=== PATIENT | female | born 1955 | race Caucasian/White ===

== ENCOUNTER 2022-01-12 11:16 | Inpatient (IN) | payer OTHER, SELFPAY ==
--- NOTE | 2022-01-12 13:00 | ED.PSYCH ---
HPI - Psych General Chief Complaint: Psychiatric Symptoms Stated Complaint: crisis Time Seen by Provider: 01/12/22 12:54 Source: patient Mode of arrival: ambulatory Limitations: no limitations History of Present Illness MD complaint: anxiety and other (insomnia off medications) Onset (ago): month(s) (?2) Duration: getting worse History of same: Yes (admitted to [facility] 2 months ago after leaving suicide note for ) Relieving factors: none Exacerbating factors: other (not taking her medications) Context: not taking psychiatric medications Associated psychiatric symptoms: suicidal ideation (making references about leaving her a note) Associated symptoms: insomnia Treatments prior to arrival: none If self harm: admits thoughts of self harm Related Data Allergies Allergy/AdvReac Type Severity Reaction Status Date / Time Unable to Assess Allergy Verified 01/12/22 13:09 Review of Systems Review of Systems: Constitutional : No Fever, No Chills, pos weight loss, pos anorexia ENT/Mouth : No Ear Pain, No Nasal Congestion, No sore throat Eyes: No Eye Pain, No Swelling, No Redness Cardiovascular : No Chest Pain, No SOB Respiratory : No Cough, No Sputum, No Dyspnea Gastrointestinal : No Nausea, No Vomiting, No Diarrhea, No Hematochezia, No Melena Genitourinary : No Dysuria, No Urinary Frequency, No Hematuria Musculoskeletal : No Myalgias Skin : No Skin Lesions, No rash Neuro : No Weakness, No Numbness, No Paresthesias, No Dizziness, No Headache Psych : positive Anxiety, positive Depression, positive SI no HI Heme/Lymph: No Lymphadenopathy Endocrine : No Polyuria, No Polydipsia All other systems reviewed and are negative PMFSH Past Medical History Medical History Anxiety Psychosis Social History Social History (Updated 01/12/22 @ 14:06 by Marie Velazquez DO) Patient Tobacco Use Status: Never used Tobacco Use of substances other than those prescribed or required for medical reasons: No Advance Directives: No Advance Directives Information Provided: No Patient : No Physical Exam Vital Signs: Vital Signs: Last Vital Signs Temp 97.9 F 01/12/22 13:40 Pulse 89 01/12/22 13:40 Resp 18 01/12/22 13:40 BP 172/96 H 01/12/22 13:40 Pulse Ox 100 01/12/22 13:40 BMI result Body Mass Index 21.1 Appearance: Alert. Oriented X3. anxious, very scared appearing mild acute distress. Eyes: Pupils equal, round and reactive to light. ENT: Pharynx normal. Neck: Normal inspection. Neck supple. CVS: Normal heart rate and rhythm. Pulses normal. Respiratory: No respiratory distress. Breath sounds normal. Abdomen: Soft and non-tender. Skin: Skin warm and dry. Normal skin color. Normal skin turgor. Extremities: No lower extremity edema. No calf ttp Neuro: Oriented X 3. No motor deficit. No sensory deficit. CN 2-12 intact Course Course Course Narrative: Physician observation started at 256pm. Patient placed in physician observation because the patient needed more time for CARE team to assess the need for inpatient psychiatry. At the time observation was started the patient's vitals were stable, patient is alert and oriented but anxious, Neuro: nonfocal, CV RRR, Lungs clear MDM - Psych MDM Narrative Medical decision making narrative: 66 yo female with hx of psychosis and anxiety reports she was at [facility] recently for psychosis and she was scared to take medications so for the last couple of months she took herself off olanzapine and did not tell her therapist or psychiatrist she is very anxious, not sleeping, worried all the time. And left her a goodbye note - she attempted SI prior to her admit at [facility] [place] Will need labs, UA, CARE team consult, PO ativan for anxiety Lab Data Result diagrams: 01/12/22 14:14 01/12/22 14:14 Labs: Lab Results 01/12/22 01/12/22 01/12/22 Range/Units 12:46 14:13 14:13 WBC (4.8-10.8) X10*3/uL RBC (4.20-5.50) X10*6/uL Hgb (12.0-16.0) g/dl Hct (37.0-47.0) % MCV (80.0-98.0) fL MCH (27.0-33.0) pg MCHC (31.0-35.0) g/dl RDW (11.0-16.0) % Plt Count (160-400) X10*3/uL MPV (9.4-12.3) fL Immature Gran % (Auto) (0.0-0.4) % Neut % (Auto) (45-73) % Lymph % (Auto) (20-40) % [place] % (Auto) (2-11) % Eos % (Auto) (0-4) % Baso % (Auto) (0-2) % Lymph # (Auto) (1.2-4.9) X10*3/uL [place] # (Auto) (0.1-1.2) X10*3/uL Eos # (Auto) (0.0-0.4) X10*3/uL Baso # (Auto) (0.0-0.2) X10*3/uL Abs Immat Gran (auto) (0.00-0.03) X10*3/uL Absolute Neuts (auto) (2.0-8.3) x10*3/uL Absolute Nucleated RBC (0.0-0.012) X10*3/uL Nucleated RBC % (auto) (0.0-0.2) /100WBC Sodium (135-145) mmol/L Potassium (3.3-5.1) mmol/L Chloride (96-108) mmol/L Carbon Dioxide (22-29) mmol/L Anion Gap (12-20) BUN (9-16) mg/dL Creatinine (0.5-1.4) mg/dL Estim Creat Clear Calc Estimated GFR Random Glucose (60-115) mg/dL Calcium (8.4-10.2) mg/dL Magnesium (1.6-2.6) mg/dL Total Bilirubin (0.0-1.0) mg/dL Direct Bilirubin (0.0-0.5) mg/dL AST (5-31) U/L ALT (0-31) U/L Alkaline Phosphatase (39-117) U/L Total Protein (6.5-8.0) g/dL Albumin (3.5-5.0) g/dL Lipase (8-78) U/L TSH (0.32-4.0) uIU/mL Urine Color STRAW Urine Appearance CLEAR Urine pH 6.5 (5.0-8.0) Ur Specific [place] <= 1.005 (1.005-1.025) Urine Protein NEG (NEG-TRACE) MG/DL Urine Glucose (UA) NEG (NEG) MG/DL Urine Ketones NEG (NEG) MG/DL Urine Blood NEG (NEG) Urine Nitrite NEG (NEG) Ur Leukocyte Esterase NEG (NEG) Urine Opiates Screen Not Detected (Not Detect) Urine Fentanyl Screen Not Detected (Not Detect) Ur Barbiturates Screen Not Detected (Not Detect) Ur Phencyclidine Scrn Not Detected (Not Detect) Ur Amphetamines Screen Not Detected (Not Detect) U Benzodiazepines Scrn Not Detected (Not Detect) Urine Cocaine Screen Not Detected (Not Detect) U Marijuana (THC) Screen Not Detected (Not Detect) COVID-19 (DEL) Negative (Negative) COVID-19 Clin Com See Note 01/12/22 01/12/22 01/12/22 Range/Units 14:14 14:14 14:14 WBC 6.9 (4.8-10.8) X10*3/uL RBC 4.66 (4.20-5.50) X10*6/uL Hgb 14.6 (12.0-16.0) g/dl Hct 43.1 (37.0-47.0) % MCV 92.5 (80.0-98.0) fL MCH 31.3 (27.0-33.0) pg MCHC 33.9 (31.0-35.0) g/dl RDW 12.0 (11.0-16.0) % Plt Count 291 (160-400) X10*3/uL MPV 8.7 L (9.4-12.3) fL Immature Gran % (Auto) 0.4 (0.0-0.4) % Neut % (Auto) 71.5 (45-73) % Lymph % (Auto) 19.9 L (20-40) % [place] % (Auto) 7.1 (2-11) % Eos % (Auto) 0.7 (0-4) % Baso % (Auto) 0.4 (0-2) % Lymph # (Auto) 1.4 (1.2-4.9) X10*3/uL [place] # (Auto) 0.5 (0.1-1.2) X10*3/uL Eos # (Auto) 0.1 (0.0-0.4) X10*3/uL Baso # (Auto) 0.0 (0.0-0.2) X10*3/uL Abs Immat Gran (auto) 0.03 (0.00-0.03) X10*3/uL Absolute Neuts (auto) 4.9 (2.0-8.3) x10*3/uL Absolute Nucleated RBC 0.000 (0.0-0.012) X10*3/uL Nucleated RBC % (auto) 0.0 (0.0-0.2) /100WBC Sodium 137 (135-145) mmol/L Potassium 4.3 (3.3-5.1) mmol/L Chloride 102 (96-108) mmol/L Carbon Dioxide 28 (22-29) mmol/L Anion Gap 11 L (12-20) BUN 16 (9-16) mg/dL Creatinine 0.95 (0.5-1.4) mg/dL Estim Creat Clear Calc 61.4 Estimated GFR 59 Random Glucose 135 H (60-115) mg/dL Calcium 9.9 (8.4-10.2) mg/dL Magnesium 2.2 (1.6-2.6) mg/dL Total Bilirubin 0.5 (0.0-1.0) mg/dL Direct Bilirubin < 0.2 (0.0-0.5) mg/dL AST 14 (5-31) U/L ALT 14 (0-31) U/L Alkaline Phosphatase 76 (39-117) U/L Total Protein 6.9 (6.5-8.0) g/dL Albumin 4.2 (3.5-5.0) g/dL Lipase 43 (8-78) U/L TSH 0.82 (0.32-4.0) uIU/mL Urine Color Urine Appearance Urine pH (5.0-8.0) Ur Specific [place] (1.005-1.025) Urine Protein (NEG-TRACE) MG/DL Urine Glucose (UA) (NEG) MG/DL Urine Ketones (NEG) MG/DL Urine Blood (NEG) Urine Nitrite (NEG) Ur Leukocyte Esterase (NEG) Urine Opiates Screen (Not Detect) Urine Fentanyl Screen (Not Detect) Ur Barbiturates Screen (Not Detect) Ur Phencyclidine Scrn (Not Detect) Ur Amphetamines Screen (Not Detect) U Benzodiazepines Scrn (Not Detect) Urine Cocaine Screen (Not Detect) U Marijuana (THC) Screen (Not Detect) COVID-19 (DEL) (Negative) COVID-19 Clin Com ECG Data Attestation: I personally reviewed and interpreted this ECG as follows: ECG interpretation date: 01/12/22 ECG interpretation time: 15:18 Interpretation: Rate: 95 Rhythm: NSR [place]: normal Normal P waves. Normal GIANFRANCO. Normal QRS complex. ST T wave : normal no AMY qTC: normal prior studies: no acute ischemia The study has been interpreted contemporaneously by me. . Discharge Plan Discharge Clinical Impression: Acute anxiety Patient Disposition: Still a Patient
--- NOTE | 2022-01-12 13:10 | ECG_ITS ---
Test Reason : med clearance Blood Pressure : / mmHG Vent. Rate : 095 BPM Atrial Rate : 095 BPM P-R Int : 150 ms QRS Dur : 094 ms QT Int : 334 ms P-R-T Axes : 062 066 068 degrees QTc Int : 419 ms Normal sinus rhythm Normal ECG No previous ECGs available Referred By: Marie Velazquez Electronically Signed By:Johan Fitzpatrick
[2022-01-12 13:14] LABS: COVID-19 Test Negative (Negative)
[2022-01-12 13:40] VITALS: BP 172/96; PULSE 89; RESP 18; TEMP 36.6; O2SAT 100; BMI 21.1
[2022-01-12] MEDS: LORazepam 0.5 MG TABLET PO (14:16)
[2022-01-12 14:19] LABS: MANUAL DIFF FLAG NO
[2022-01-12 14:20] LABS: Appearance Urine CLEAR; Color Urine STRAW; Glucose Urine UA NEG (NEG); Leukocyte Esterase Urine NEG (NEG); Nitrite Urine NEG (NEG); PH 6.5 (5.0-8.0); Specific Gravity - Urine <= 1.005 (1.005-1.025); Urine Blood NEG (NEG); Urine Ketones NEG (NEG); Urine Protein NEG (NEG-TRACE)
[2022-01-12 14:21] LABS: Basophils Percent Auto 0.4 % (0-2); Eosinophils Absolute Auto 0.1 X10*3/uL (0.0-0.4); Eosinophils Percent Auto 0.7 % (0-4); Hematocrit 43.1 % (37.0-47.0); Hemoglobin 14.6 g/dl (12.0-16.0); Imm Gran Abs Auto 0.03 X10*3/uL (0.00-0.03); Imm Gran Pct Auto 0.4 % (0.0-0.4); Lymphocytes Absolute Auto 1.4 X10*3/uL (1.2-4.9); Lymphocytes Percent Auto 19.9 % (20-40); Mean Corpuscular HGB Conc 33.9 g/dl (31.0-35.0); Mean Corpuscular Hemoglobin 31.3 pg (27.0-33.0); Mean Corpuscular Volume 92.5 fL (80.0-98.0); Mean Platelet Volume 8.7 fL (9.4-12.3); Monocytes Absolute Auto 0.5 X10*3/uL (0.1-1.2); Monocytes Percent Auto 7.1 % (2-11); Neutrophils Absolute Auto 4.9 x10*3/uL (2.0-8.3); Neutrophils Percent Auto 71.5 % (45-73); Platelet Count 291 X10*3/uL (160-400); Red Blood Count 4.66 X10*6/uL (4.20-5.50); White Blood Count 6.9 X10*3/uL (4.8-10.8)
[2022-01-12 14:36] LABS: Amphetamine Screen Urine Not Detected (Not Detect); Barbiturates, Urine Not Detected (Not Detect); Benzodiazepines Screen Urine Not Detected (Not Detect); Cannabinoid Screen Urine Not Detected (Not Detect); Cocaine Screen Urine Not Detected (Not Detect); Fentanyl, urine Not Detected (Not Detect); Opiate Screen Urine Not Detected (Not Detect); Phencyclidine Screen Urine Not Detected (Not Detect)
[2022-01-12 14:37] LABS: Alanine Aminotransferase 14 U/L (0-31); Albumin Level 4.2 g/dL (3.5-5.0); Alkaline Phosphatase 76 U/L (39-117); Anion Gap 11 (12-20); Aspartate Amino Transferase 14 U/L (5-31); Bilirubin Direct < 0.2 mg/dL (0.0-0.5); Bilirubin Total 0.5 mg/dL (0.0-1.0); Blood Urea Nitrogen 16 mg/dL (9-16); Calcium 9.9 mg/dL (8.4-10.2); Carbon Dioxide 28 mmol/L (22-29); Chloride 102 mmol/L (96-108); Creatinine Clr Calc Pharmacy 61.4; Estimated Glomerular Filt Rate 59; Glucose Random 135 mg/dL (60-115); Lipase 43 U/L (8-78); Magnesium 2.2 mg/dL (1.6-2.6); Potassium 4.3 mmol/L (3.3-5.1); Sodium 137 mmol/L (135-145); Total Protein 6.9 g/dL (6.5-8.0)
[2022-01-12 14:53] LABS: TSH reflex Free T4 0.82 uIU/mL (0.32-4.0)
[2022-01-12 17:05] VITALS: BP 140/90; PULSE 96; RESP 20; TEMP 37; O2SAT 96
[2022-01-12] MEDS: Ibuprofen 400 MG TABLET PO (17:10)
[2022-01-12] MEDS: Docusate Sodium 100 MG CAPSULE PO (19:51)
[2022-01-12 21:50] VITALS: BP 142/90; PULSE 81; RESP 18; TEMP 36.2; O2SAT 98
[2022-01-12] MEDS: traZODone HCL 50 MG TABLET PO (23:17)
[2022-01-13] MEDS: Ibuprofen 600 MG TABLET PO (00:35)
[2022-01-13] MEDS: traZODone HCL 50 MG TABLET PO (00:36)
[2022-01-13 02:04] VITALS: BMI 19.5
--- NOTE | 2022-01-13 02:28 | PC.ADMIT ---
Addendum entered by Delphine Zamorano RN 01/13/22 03:11: Med Hx also includes stress/urge incontinence. Original Note: Pt is a 66 year old female presented to from [facility] ED at 2145 this evening on a CV. Pt is Covid -, Utox -. VS were taken and WNL with exception of BP of 142/90. Pt had been hospitalized in Aug/Sep d/t her anxiety at [facility]. She was stable for a while but went off her medications because she was afraid it would give her a stroke. Pt stated that while at [facility], she had mentioned that her son did well on zyprexa and then they put her on the same medication. She stated I do not need to be on an anti-psychotic . Pt also stated that the whole idea of her being on zyprexa was random . Pt states that while she was walking by the river she had some thoughts to jump into the river but decided not to do it. States that she has been finding it very difficult to attend to her ADL's. States that she has no med hx with exception of constipation and this issue going on with the toes on her right foot causing her extreme discomfort and anxiety. She believe this issue started after breaking her right foot last year. Pt had stopped taking the meds prescribed to her since her [facility] stay as she felt she could manage without it. She would like to be prescribed a medication to decrease/control her anxiety and something to help with her sleep. Pt currently denies any SI, HI, AVH. Provider orders are in, aware of admit. Pt has contracted for safety and is on 15 minute checks.
[2022-01-13] MEDS: LORazepam 0.5 MG TABLET PO (02:48)
--- NOTE | 2022-01-13 05:13 | PC.NURSE ---
Pt stated she rec'd the flu vaccine in [facility] back in Aug-2020.
[2022-01-13] MEDS: Milk of Magnesia 30 ML ORAL.SUSP PO (08:36)
[2022-01-13 08:55] VITALS: BP 127/83; PULSE 82; RESP 18; TEMP 36.2; O2SAT 98
[2022-01-13 08:58] VITALS: BMI 19.5
[2022-01-13 09:44] LABS: Magnesium 2.2 mg/dL (1.6-2.6)
[2022-01-13 09:59] LABS: Free T4 (Free Thyroxine) 1.04 ng/dL (0.71-1.85); Thyroid Stimulating Hormone 1.48 uIU/mL (0.32-4.0)
[2022-01-13 10:52] LABS: Vitamin B12 577 pg/mL (200-900)
[2022-01-13] MEDS: Acetaminophen 325 MG TABLET 650 MG PO (11:19)
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
[2022-01-13] MEDS: polyethylene glycoL 3350 17 GM POWD.PACK PO (16:27)
[2022-01-13] MEDS: clonazePAM 0.5 MG TABLET PO ×2 (16:27→21:35)
[2022-01-13] MEDS: risperiDONE 0.5 MG TABLET PO ×2 (16:27→21:35)
[2022-01-13 18:00] VITALS: BP 107/74; PULSE 86; RESP 18; TEMP 36.4; O2SAT 98
[2022-01-14 09:39] LABS: Estimated Average Glucose 105 mg/dL; Hemoglobin A1c % 5.3 %
[2022-01-14 09:45] LABS: Cholesterol 205 mg/dL; HDL Cholesterol 45 mg/dL; LDL Cholesterol Calculated 139 mg/dl; Triglycerides 106 mg/dL
[2022-01-14 09:56] VITALS: BP 122/66; PULSE 110; RESP 17; TEMP 36.8; O2SAT 99
[2022-01-14] MEDS: polyethylene glycoL 3350 17 GM POWD.PACK PO (09:56)
[2022-01-14] MEDS: risperiDONE 0.5 MG TABLET PO (09:57)
[2022-01-14] MEDS: clonazePAM 0.5 MG TABLET PO ×2 (09:57→21:04)
--- NOTE | 2022-01-14 15:06 | P.PNPSI_ITS ---
Subjective Subjective Date of Service: 01/14/22 Reason For Visit: Depression,SI Interim History: pt reports feeling happy she slept last night, not so anxious now. c/o feeling tired this morning, which may be due to klonopin and risperidone. agrees to consolidate risperidone at HS. also c/o severe constipation, agreeable to enema. denies any safety concerns, MRE SI 2 days ago. per staff, anx/dep 9/10 yesterday. eating OK but has poor appetite. poor sleep 2/2 pain. denies SI/HI /AVH. safe. new orders for klonopin, miralax, risperidone. Mental Status Exam Mental Status Exam Narrative: Appearance:thin casually groomed, fair hygiene Behavior: cooperative psychomotor: no PMA/PMR Speech: hyperverbal, nml rate, loudness. Thought process: wandering but logical Thought content: no delusions or paranoia expressed Mood: happy she slept, not so anxious. Affect: congruent SI: denies since 2 days ago HI:none VH/AH: denies Delusions: none expressed Insight/judgment:impaired x 2. Memory/cog: alert, oriented 3. not formally tested, may do MOCA once psychiatrically more stable. Diagnostics Vital Signs (24Hr): Vital Signs - 24 hr 01/13/22 18:00 01/14/22 09:56 Temperature 97.6 F 98.3 F Pulse Rate 86 110 H Respiratory Rate 18 17 Blood Pressure 107/74 122/66 Pulse Oximetry 98 99 BMI result Body Mass Index 19.5 Labs Results: 01/12/22 14:14 01/12/22 14:14 Labs: Laboratory Results - last 48 hr 01/13/22 01/13/22 01/14/22 08:51 08:51 09:10 Estimat Average Glucose Hemoglobin A1c % Magnesium 2.2 Triglycerides 106 Cholesterol 205 LDL Cholesterol, Calc 139 HDL Cholesterol 45 Vitamin B12 577 Folate 12.0 TSH 1.48 Free T4 1.04 01/14/22 09:10 Estimat Average Glucose 105 Hemoglobin A1c % 5.3 Magnesium Triglycerides Cholesterol LDL Cholesterol, Calc HDL Cholesterol Vitamin B12 Folate TSH Free T4 Medications Medications Current Medications Acetaminophen (Acetaminophen 325 Mg Tablet) 650 mg PO Q6H PRN PRN Reason: Headache/Pain Mild Scale (1-3) Last Admin: 01/13/22 11:19 Dose: 650 mg Documented by: Al Hydroxide/Mg Hydroxide (Magnesium Hydrox/Alum Hydrox 30 Ml Oral.Susp) 30 ml PO Q6H PRN PRN Reason: Heartburn/Nausea Clonazepam (Clonazepam 0.5 Mg Tablet) 0.5 mg PO BID [facility] Last Admin: 01/14/22 09:57 Dose: 0.5 mg Documented by: Hydroxyzine HCl (Hydroxyzine Hcl 25 Mg Tablet) 25 mg PO Q6H PRN PRN Reason: Anxiety Ibuprofen (Ibuprofen 600 Mg Tablet) 600 mg PO Q8H PRN PRN Reason: Pain, Mild (Pain Scale 1-3) Last Admin: 01/13/22 00:35 Dose: 600 mg Documented by: Magnesium Hydroxide (Milk Of Magnesia 30 Ml Oral.Susp) 30 ml PO DAILY PRN PRN Reason: Constipation Last Admin: 01/13/22 08:36 Dose: 30 ml Documented by: Polyethylene Glycol (Polyethylene Glycol 3350 17 Gm Powd.Pack) 17 gm PO DAILY [facility] Last Admin: 01/14/22 09:56 Dose: 17 gm Documented by: Risperidone (Risperidone 1 Mg Tablet) 1 mg PO BEDTIME [facility] Trazodone HCl (Trazodone Hcl 50 Mg Tablet) 50 mg PO BEDTIME PRN PRN Reason: Insomnia Last Admin: 01/13/22 00:36 Dose: 50 mg Documented by: Trolamine Salicylate/Aloe Vera (Trolamine Salicylate 10%/Aloe Cream 35.4 Gm) 1 appl TOPICAL QID PRN PRN Reason: left toes pain Allergies Allergies Allergy/AdvReac Type Severity Reaction Status Date / Time diphenhydramine Allergy Unknown Unknown Verified 01/13/22 03:25 [From Benadryl] Assessment & Plan Assessment & Plan (1) Psychosis: Status: Acute Code(s): F29 - Unspecified psychosis not due to a substance or known physiological con dition Plan Mrs. Ch is a 66 year-old woman w/ hx of persecutory/paranoid delusions for the past years. She was brought to [facility] [place] [facility] by as pt wrote [place] due to paranoid delusions. Her does report an underlying anxious bordering on paranoia traits for past 25 years but severity much worse in past year. R/o delusional disorder, psychosis related to neurocognitive d/o, MDD with psychosis. We discussed risks, benefits and alternative treatment options. PLAN 1. Admit on CV, 15 minutes checks for safety 2. Start clonazepam 0.5mg po BID 3. Start risperidone 0.5mg po BID- titrate as appropriate. consolidate to 1 mg at HS due to morning sedation 01/14. 4. Miralax for constipation- may consider KUB if continued reports of constipation without relief, unclear if some somatic delusions also present. enema orderd x1 01/14. 5. Obtain collateral information 6. Aftercare planning. I spent __25____ minutes with the patient and/or on the patient floor today, greater than?50% of which was spent counseling/coordinating care. Reason for contiued inpatient stay Substantial Risk for: inability to function and rapid decompensation
[2022-01-14 20:08] VITALS: BP 128/72; PULSE 76; RESP 17; TEMP 36.5; O2SAT 99
[2022-01-14] MEDS: risperiDONE 1 MG TABLET PO (21:04)
[2022-01-15 08:00] VITALS: BP 133/83; PULSE 84; RESP 16; TEMP 36.4; O2SAT 96
[2022-01-15] MEDS: polyethylene glycoL 3350 17 GM POWD.PACK PO (09:31)
--- NOTE | 2022-01-15 10:09 | P.PNPSI_ITS ---
Subjective Subjective Date of Service: 01/15/22 Reason For Visit: Depression,SI Interim History: pt reports feeling slightly less anxious. She reports sleeping better. She continues to present hesitant and overly worried about side effects of medications. She continues to ruminate on neighbors watching her, anxious about finances and how it impacted her ability to work. She denies SI/HI, hesitant about increasing risperidone but discuss need to increase to therapeutic dose. Review of Systems Review of Systems Constitutional : No Fever, No Chills, pos weight loss, pos anorexia ENT/Mouth : No Ear Pain, No Nasal Congestion, No sore throat Eyes: No Eye Pain, No Swelling, No Redness Cardiovascular : No Chest Pain, No SOB Respiratory : No Cough, No Sputum, No Dyspnea Gastrointestinal : No Nausea, No Vomiting, No Diarrhea, No Hematochezia, No Melena Genitourinary : No Dysuria, No Urinary Frequency, No Hematuria Musculoskeletal : No Myalgias Skin : No Skin Lesions, No rash Neuro : No Weakness, No Numbness, No Paresthesias, No Dizziness, No Headache Psych : positive Anxiety, positive Depression, positive SI no HI Heme/Lymph: No Lymphadenopathy Endocrine : No Polyuria, No Polydipsia All other systems reviewed and are negative Constitutional: Reports difficulty sleeping, Reports fatigue, Reports lethargy, Reports poor appetite and Reports weight loss Eyes: Reports no additional eye complaints Cardiovascular: Denies chest pain, Denies chest pain at rest, Denies lightheadedness, Denies dyspnea and Denies dyspnea on exertion Respiratory: Denies chest congestion, Denies cough, Denies dyspnea and Denies dyspnea on exertion Gastrointestinal: Reports constipation, Reports GI cramping, Denies dyspepsia, Denies heartburn, Denies nausea, Denies vomiting and Denies hematemesis Musculoskeletal: Reports numbness (bilat feet) Reports numbness (bilat feet) Endocrine: Reports fatigue Mental Status Exam Mental Status Exam Narrative: Appearance:thin casually groomed, fair hygiene Behavior: cooperative psychomotor: no PMA/PMR Speech: hyperverbal, nml rate, loudness. Thought process: wandering but logical Thought content: no delusions or paranoia expressed Mood: happy she slept, not so anxious. Affect: congruent SI: denies since 2 days ago HI:none VH/AH: denies Delusions: none expressed Insight/judgment:impaired x 2. Memory/cog: alert, oriented 3. not formally tested, may do MOCA once psychiatrically more stable. Diagnostics Vital Signs (24Hr): Vital Signs - 24 hr 01/16/22 19:40 01/17/22 08:17 Temperature 98.0 F 97.0 F Pulse Rate 68 78 Respiratory Rate 16 16 Blood Pressure 134/85 127/81 Pulse Oximetry 97 99 BMI result Body Mass Index 19.5 Labs Results: 01/12/22 14:14 01/12/22 14:14 Medications Medications Current Medications Acetaminophen (Acetaminophen 325 Mg Tablet) 650 mg PO Q6H PRN PRN Reason: Headache/Pain Mild Scale (1-3) Last Admin: 01/13/22 11:19 Dose: 650 mg Documented by: Al Hydroxide/Mg Hydroxide (Magnesium Hydrox/Alum Hydrox 30 Ml Oral.Susp) 30 ml PO Q6H PRN PRN Reason: Heartburn/Nausea Clonazepam (Clonazepam 1 Mg Tablet) 1 mg PO BEDTIME [facility] Last Admin: 01/16/22 21:16 Dose: 1 mg Documented by: Clonazepam (Clonazepam 0.5 Mg Tablet) 0.5 mg PO DAILY PRN PRN Reason: Anxiety Hydroxyzine HCl (Hydroxyzine Hcl 25 Mg Tablet) 25 mg PO Q6H PRN PRN Reason: Anxiety Ibuprofen (Ibuprofen 600 Mg Tablet) 600 mg PO Q8H PRN PRN Reason: Pain, Mild (Pain Scale 1-3) Last Admin: 01/13/22 00:35 Dose: 600 mg Documented by: Magnesium Hydroxide (Milk Of Magnesia 30 Ml Oral.Susp) 30 ml PO DAILY PRN PRN Reason: Constipation Last Admin: 01/13/22 08:36 Dose: 30 ml Documented by: Polyethylene Glycol (Polyethylene Glycol 3350 17 Gm Powd.Pack) 17 gm PO DAILY [facility] Last Admin: 01/17/22 08:18 Dose: 17 gm Documented by: Risperidone (Risperidone 0.5 Mg Tablet) 0.5 mg PO BID [facility] Last Admin: 01/17/22 08:19 Dose: 0.5 mg Documented by: Trazodone HCl (Trazodone Hcl 50 Mg Tablet) 50 mg PO BEDTIME PRN PRN Reason: Insomnia Last Admin: 01/13/22 00:36 Dose: 50 mg Documented by: Trolamine Salicylate/Aloe Vera (Trolamine Salicylate 10%/Aloe Cream 35.4 Gm) 1 appl TOPICAL QID PRN PRN Reason: left toes pain Allergies Allergies Allergy/AdvReac Type Severity Reaction Status Date / Time diphenhydramine Allergy Unknown Unknown Verified 01/13/22 03:25 [From Benadryl] Assessment & Plan Assessment & Plan (1) Psychosis: Status: Acute Code(s): F29 - Unspecified psychosis not due to a substance or known physiological condition Plan Mrs. Ch is a 66 year-old woman w/ hx of persecutory/paranoid delusions for the past years. She was brought to [facility] [place] [facility] by as pt [place] to paranoid delusions. Her does report an underlying anxious bordering on paranoia traits for past 25 years but severity much worse in past year. R/o delusional disorder, psychosis related to neurocognitive d/o, MDD with psychosis. We discussed risks, benefits and alternative treatment options. PLAN 1. Admit on CV, 15 minutes checks for safety 2. continue clonazepam 0.5mg po daily prn, clonazepam 1mg po qhs. 3. Start risperidone 0.5mg po BID- titrate as appropriate. pt prefers split dose of risperidone. 4. Miralax for constipation- may consider KUB if continued reports of constipation without relief, unclear if some somatic delusions also present. enema orderd x1 01/14. 5. Obtain collateral information 6. Aftercare planning. I spent minutes with the patient and/or on the patient floor today, greater than?50% of which was spent counseling/coordinating care. Reason for contiued inpatient stay Substantial Risk for: inability to function
[2022-01-15] MEDS: risperiDONE 0.5 MG TABLET PO ×2 (10:49→21:14)
[2022-01-15 20:26] VITALS: BP 113/77; PULSE 102; RESP 16; TEMP 36.7; O2SAT 97
[2022-01-15] MEDS: clonazePAM 1 MG TABLET PO (21:14)
[2022-01-16 08:55] VITALS: BP 131/81; PULSE 75; RESP 14; O2SAT 99
[2022-01-16] MEDS: polyethylene glycoL 3350 17 GM POWD.PACK PO (08:58)
[2022-01-16] MEDS: risperiDONE 0.5 MG TABLET PO ×2 (08:58→21:16)
--- NOTE | 2022-01-16 09:59 | HO.PSYCHPN ---
Subjective Subjective Date of Service: 01/15/22 Reason For Visit: Depression,SI Interim History: pt reports feeling slightly less anxious. She reports sleeping better. She continues to present hesitant and overly worried about side effects of medications. She continues to ruminate on neighbors watching her, anxious about finances and how it impacted her ability to work. She denies SI/HI, hesitant about increasing risperidone but discuss need to increase to therapeutic dose. Medication Compliance: Yes Side effects from medications: No Review of Systems Review of Systems Constitutional : No Fever, No Chills, pos weight loss, pos anorexia ENT/Mouth : No Ear Pain, No Nasal Congestion, No sore throat Eyes: No Eye Pain, No Swelling, No Redness Cardiovascular : No Chest Pain, No SOB Respiratory : No Cough, No Sputum, No Dyspnea Gastrointestinal : No Nausea, No Vomiting, No Diarrhea, No Hematochezia, No Melena Genitourinary : No Dysuria, No Urinary Frequency, No Hematuria Musculoskeletal : No Myalgias Skin : No Skin Lesions, No rash Neuro : No Weakness, No Numbness, No Paresthesias, No Dizziness, No Headache Psych : positive Anxiety, positive Depression, positive SI no HI Heme/Lymph: No Lymphadenopathy Endocrine : No Polyuria, No Polydipsia All other systems reviewed and are negative Constitutional: Reports difficulty sleeping, Reports fatigue, Reports lethargy, Reports poor appetite and Reports weight loss Eyes: Reports no additional eye complaints Cardiovascular: Denies chest pain, Denies chest pain at rest, Denies lightheadedness, Denies dyspnea and Denies dyspnea on exertion Respiratory: Denies chest congestion, Denies cough, Denies dyspnea and Denies dyspnea on exertion Gastrointestinal: Reports constipation, Reports GI cramping, Denies dyspepsia, Denies heartburn, Denies nausea, Denies vomiting and Denies hematemesis Musculoskeletal: Reports numbness (bilat feet) Reports numbness (bilat feet) Endocrine: Reports fatigue Mental Status Exam Mental Status Exam Narrative: Appearance:thin casually groomed, fair hygiene Behavior: cooperative psychomotor: no PMA/PMR Speech: hyperverbal, nml rate, loudness. Thought process: wandering but logical Thought content: no delusions or paranoia expressed Mood: happy she slept, not so anxious. Affect: congruent SI: denies since 2 days ago HI:none VH/AH: denies Delusions: none expressed Insight/judgment:impaired x 2. Memory/cog: alert, oriented 3. not formally tested, may do MOCA once psychiatrically more stable. Diagnostics Vital Signs (24Hr): Vital Signs - 24 hr 01/16/22 19:40 01/17/22 08:17 Temperature 98.0 F 97.0 F Pulse Rate 68 78 Respiratory Rate 16 16 Blood Pressure 134/85 127/81 Pulse Oximetry 97 99 BMI result Body Mass Index 19.5 Labs Results: 01/12/22 14:14 01/12/22 14:14 Medications Medications Current Medications Acetaminophen (Acetaminophen 325 Mg Tablet) 650 mg PO Q6H PRN PRN Reason: Headache/Pain Mild Scale (1-3) Last Admin: 01/13/22 11:19 Dose: 650 mg Documented by: Al Hydroxide/Mg Hydroxide (Magnesium Hydrox/Alum Hydrox 30 Ml Oral.Susp) 30 ml PO Q6H PRN PRN Reason: Heartburn/Nausea Clonazepam (Clonazepam 1 Mg Tablet) 1 mg PO BEDTIME [facility] Last Admin: 01/16/22 21:16 Dose: 1 mg Documented by: Clonazepam (Clonazepam 0.5 Mg Tablet) 0.5 mg PO DAILY PRN PRN Reason: Anxiety Hydroxyzine HCl (Hydroxyzine Hcl 25 Mg Tablet) 25 mg PO Q6H PRN PRN Reason: Anxiety Ibuprofen (Ibuprofen 600 Mg Tablet) 600 mg PO Q8H PRN PRN Reason: Pain, Mild (Pain Scale 1-3) Last Admin: 01/13/22 00:35 Dose: 600 mg Documented by: Magnesium Hydroxide (Milk Of Magnesia 30 Ml Oral.Susp) 30 ml PO DAILY PRN PRN Reason: Constipation Last Admin: 01/13/22 08:36 Dose: 30 ml Documented by: Polyethylene Glycol (Polyethylene Glycol 3350 17 Gm Powd.Pack) 17 gm PO DAILY [facility] Last Admin: 01/17/22 08:18 Dose: 17 gm Documented by: Risperidone (Risperidone 0.5 Mg Tablet) 0.5 mg PO BID [facility] Last Admin: 01/17/22 08:19 Dose: 0.5 mg Documented by: Trazodone HCl (Trazodone Hcl 50 Mg Tablet) 50 mg PO BEDTIME PRN PRN Reason: Insomnia Last Admin: 01/13/22 00:36 Dose: 50 mg Documented by: Trolamine Salicylate/Aloe Vera (Trolamine Salicylate 10%/Aloe Cream 35.4 Gm) 1 appl TOPICAL QID PRN PRN Reason: left toes pain Allergies Allergies Allergy/AdvReac Type Severity Reaction Status Date / Time diphenhydramine Allergy Unknown Unknown Verified 01/13/22 03:25 [From Benadryl] Assessment & Plan Assessment & Plan (1) Psychosis: Status: Acute Code(s): F29 - Unspecified psychosis not due to a substance or known physiological condition Plan Mrs. Ch is a 66 year-old woman w/ hx of persecutory/paranoid delusions for the past years. She was brought to [facility] [place] [facility] by as pt [place] delusions. Her does report an underlying anxious bordering on paranoia traits for past 25 years but severity much worse in past year. R/o delusional disorder, psychosis related to neurocognitive d/o, MDD with psychosis. We discussed risks, benefits and alternative treatment options. PLAN 1. Admit on CV, 15 minutes checks for safety 2. Start clonazepam 0.5mg po BID 3. Start risperidone 0.5mg po BID- titrate as appropriate. consolidate to 1 mg at HS due to morning sedation /. 4. Miralax for constipation- may consider KUB if continued reports of constipation without relief, unclear if some somatic delusions also present. enema orderd x1 /. 5. Obtain collateral information 6. Aftercare planning. I spent minutes with the patient and/or on the patient floor today, greater than?50% of which was spent counseling/coordinating care. Reason for contiued inpatient stay Substantial Risk for: inability to function
[2022-01-16 19:40] VITALS: BP 134/85; PULSE 68; RESP 16; TEMP 36.7; O2SAT 97
[2022-01-16] MEDS: clonazePAM 1 MG TABLET PO (21:16)
[2022-01-17 08:17] VITALS: BP 127/81; PULSE 78; RESP 16; TEMP 36.1; O2SAT 99
[2022-01-17] MEDS: polyethylene glycoL 3350 17 GM POWD.PACK PO (08:18)
[2022-01-17] MEDS: risperiDONE 0.5 MG TABLET PO ×2 (08:19→21:27)
--- NOTE | 2022-01-17 13:17 | P.PNPSI_ITS ---
Subjective Subjective Date of Service: 01/17/22 Reason For Visit: Depression,SI Interim History: pt very slowed down, seems to have PMR and paucity of thought. states she is having thoughts that she can't discuss with me. neither can she tell me why she can't discuss them with me. unwilling to increase risperidone dosing at HS despite MD's recommendation. feels more partial to the klonopin. states she is sleeping better now and her perception is that her problem was lack of sleep. MD agrees to give it another day on current regimen. per staff, slept 11p to 7a night before last. difficulty concentrating, somatically preoccupied. c/o anxiety and depression. lots of time in milieu, social with peers. med- compliant. Mental Status Exam Mental Status Exam Narrative: Appearance:thin casually groomed, fair hygiene Behavior: cooperative psychomotor: PMR Speech: nml rate, decr amount. incr latency of response. Thought process: wandering but logical. paucity of thought. Thought content: no delusions or paranoia expressed Mood: a little less anxious Affect: constricted, hypo-intense, non-labile. SI: none expressed HI:none expressed VH/AH: none expressed Delusions: none expressed Diagnostics Vital Signs (24Hr): Vital Signs - 24 hr 01/16/22 19:40 01/17/22 08:17 Temperature 98.0 F 97.0 F Pulse Rate 68 78 Respiratory Rate 16 16 Blood Pressure 134/85 127/81 Pulse Oximetry 97 99 BMI result Body Mass Index 19.5 Labs Results: 01/12/22 14:14 01/12/22 14:14 Medications Medications Current Medications Acetaminophen (Acetaminophen 325 Mg Tablet) 650 mg PO Q6H PRN PRN Reason: Headache/Pain Mild Scale (1-3) Last Admin: 01/13/22 11:19 Dose: 650 mg Documented by: Al Hydroxide/Mg Hydroxide (Magnesium Hydrox/Alum Hydrox 30 Ml Oral.Susp) 30 ml PO Q6H PRN PRN Reason: Heartburn/Nausea Clonazepam (Clonazepam 1 Mg Tablet) 1 mg PO BEDTIME [facility] Last Admin: 01/16/22 21:16 Dose: 1 mg Documented by: Clonazepam (Clonazepam 0.5 Mg Tablet) 0.5 mg PO DAILY PRN PRN Reason: Anxiety Hydroxyzine HCl (Hydroxyzine Hcl 25 Mg Tablet) 25 mg PO Q6H PRN PRN Reason: Anxiety Ibuprofen (Ibuprofen 600 Mg Tablet) 600 mg PO Q8H PRN PRN Reason: Pain, Mild (Pain Scale 1-3) Last Admin: 01/13/22 00:35 Dose: 600 mg Documented by: Magnesium Hydroxide (Milk Of Magnesia 30 Ml Oral.Susp) 30 ml PO DAILY PRN PRN Reason: Constipation Last Admin: 01/13/22 08:36 Dose: 30 ml Documented by: Polyethylene Glycol (Polyethylene Glycol 3350 17 Gm Powd.Pack) 17 gm PO DAILY [facility] Last Admin: 01/17/22 08:18 Dose: 17 gm Documented by: Risperidone (Risperidone 0.5 Mg Tablet) 0.5 mg PO BID [facility] Last Admin: 01/17/22 08:19 Dose: 0.5 mg Documented by: Trazodone HCl (Trazodone Hcl 50 Mg Tablet) 50 mg PO BEDTIME PRN PRN Reason: Insomnia Last Admin: 01/13/22 00:36 Dose: 50 mg Documented by: Trolamine Salicylate/Aloe Vera (Trolamine Salicylate 10%/Aloe Cream 35.4 Gm) 1 appl TOPICAL QID PRN PRN Reason: left toes pain Allergies Allergies Allergy/AdvReac Type Severity Reaction Status Date / Time diphenhydramine Allergy Unknown Unknown Verified 01/13/22 03:25 [From Sandra] Assessment & Plan Assessment & Plan (1) Psychosis: Status: Acute Code(s): F29 - Unspecified psychosis not due to a substance or known physiological condition Plan Mrs. Ch is a 66 year-old woman w/ hx of persecutory/paranoid delusions for the past years. She was [place] [facility] [place] as pt [place] delusions. Her does report an underlying anxious bordering on paranoia traits for past 25 years but severity much worse in past year. R/o delusional disorder, psychosis related to neurocognitive d/o, MDD with psychosis. We discussed risks, benefits and alternative treatment options. PLAN 1. Admit on CV, 15 minutes checks for safety 2. continue clonazepam 0.5mg po daily prn, clonazepam 1mg po qhs. 3. Start risperidone 0.5mg po BID- titrate as appropriate. pt prefers split dose of risperidone. T/C increasing HS dose to 1 mg. 4. Miralax for constipation- pt reports that as of 01/17 she has been moving her bowels for several days and no longer feels this is an issue. 5. aftercare planning I spent __25____ minutes with the patient and/or on the patient floor today, greater than?50% of which was spent counseling/coordinating care. Reason for contiued inpatient stay Substantial Risk for: harm to self, inability to function and rapid decompensation
[2022-01-17 18:00] VITALS: BP 121/82; PULSE 108; RESP 18; TEMP 36.6; O2SAT 98
[2022-01-17] MEDS: clonazePAM 1 MG TABLET PO (21:27)
[2022-01-18 08:33] VITALS: BP 120/74; PULSE 73; RESP 16; O2SAT 99
[2022-01-18] MEDS: risperiDONE 0.5 MG TABLET PO ×3 (08:35→20:57)
[2022-01-18] MEDS: polyethylene glycoL 3350 17 GM POWD.PACK PO (08:35)
--- NOTE | 2022-01-18 13:43 | HO.PSYCHPN ---
Subjective Subjective Date of Service: 01/18/22 Reason For Visit: Depression,SI Interim History: pt seen on the phone throughout morning, visible in milieu. agreeable to interview. pleasant, cooperative. reluctantly agrees to increase risperidone from 0.5 BID to 1/0.5. reiterates having thoughts she doesn't want to share with MD thompsone she is concerned they would result in her being kept here longer by MD; she would like to go home soon. that said, she expresses anxiety about returning home, not sure if she is ready. states she slept well again last night, about which she is satisfied. per staff, anx/dep better. overwhelmed thinking about life outside the hospital, however. denies SI/HI/AVH. med-compliant. c/o poor sleep. Mental Status Exam Mental Status Exam Narrative: Appearance:thin casually groomed, fair hygiene Behavior: cooperative psychomotor: PMR Speech: nml rate, decr amount. incr latency of response. Thought process: wandering but logical. less paucity of thought. Thought content: no delusions or paranoia expressed Mood: improved Affect: more flexible, hypo-intense, non-labile. SI: none expressed HI:none expressed VH/AH: none expressed Delusions: none expressed Diagnostics Vital Signs (24Hr): Vital Signs - 24 hr 01/17/22 18:00 01/18/22 08:33 Temperature 97.9 F Pulse Rate 108 H 73 Respiratory Rate 18 16 Blood Pressure 121/82 120/74 Pulse Oximetry 98 99 BMI result Body Mass Index 19.5 Labs Results: 01/12/22 14:14 01/12/22 14:14 Medications Medications Current Medications Acetaminophen (Acetaminophen 325 Mg Tablet) 650 mg PO Q6H PRN PRN Reason: Headache/Pain Mild Scale (1-3) Last Admin: 01/13/22 11:19 Dose: 650 mg Documented by: Al Hydroxide/Mg Hydroxide (Magnesium Hydrox/Alum Hydrox 30 Ml Oral.Susp) 30 ml PO Q6H PRN PRN Reason: Heartburn/Nausea Clonazepam (Clonazepam 1 Mg Tablet) 1 mg PO BEDTIME LEAH Last Admin: 01/17/22 21:27 Dose: 1 mg Documented by: Clonazepam (Clonazepam 0.5 Mg Tablet) 0.5 mg PO DAILY PRN PRN Reason: Anxiety Hydroxyzine HCl (Hydroxyzine Hcl 25 Mg Tablet) 25 mg PO Q6H PRN PRN Reason: Anxiety Ibuprofen (Ibuprofen 600 Mg Tablet) 600 mg PO Q8H PRN PRN Reason: Pain, Mild (Pain Scale 1-3) Last Admin: 01/13/22 00:35 Dose: 600 mg Documented by: Magnesium Hydroxide (Milk Of Magnesia 30 Ml Oral.Susp) 30 ml PO DAILY PRN PRN Reason: Constipation Last Admin: 01/13/22 08:36 Dose: 30 ml Documented by: Polyethylene Glycol (Polyethylene Glycol 3350 17 Gm Powd.Pack) 17 gm PO DAILY LEAH Last Admin: 01/18/22 08:35 Dose: 17 gm Documented by: Risperidone (Risperidone 0.5 Mg Tablet) 0.5 mg PO BEDTIME LEAH Last Admin: 01/18/22 12:42 Dose: 0.5 mg Documented by: Risperidone (Risperidone 1 Mg Tablet) 1 mg PO DAILY [facility] Trazodone HCl (Trazodone Hcl 50 Mg Tablet) 50 mg PO BEDTIME PRN PRN Reason: Insomnia Last Admin: 01/13/22 00:36 Dose: 50 mg Documented by: Trolamine Salicylate/Aloe Vera (Trolamine Salicylate 10%/Aloe Cream 35.4 Gm) 1 appl TOPICAL QID PRN PRN Reason: left toes pain Allergies Allergies Allergy/AdvReac Type Severity Reaction Status Date / Time diphenhydramine Allergy Unknown Unknown Verified 01/13/22 03:25 [From Benadryl] Assessment & Plan Assessment & Plan (1) Psychosis: Status: Acute Code(s): F29 - Unspecified psychosis not due to a substance or known physiological condition Plan Mrs. Ch is a 66 year-old woman w/ hx of persecutory/paranoid delusions for the past years. She was brought to [facility] by as pt wrote suicide [place] due to paranoid delusions. Her does report an underlying anxious bordering on paranoia traits for past 25 years but severity much worse in past year. R/o delusional disorder, psychosis related to neurocognitive d/o, MDD with psychosis. We discussed risks, benefits and alternative treatment options. PLAN 1. Admit on CV, 15 minutes checks for safety 2. continue clonazepam 0.5mg po daily prn, clonazepam 1mg po qhs. 3. Start risperidone 0.5mg po BID- titrate as appropriate. pt prefers split dose of risperidone. morning dose increased to 1 mg as of 01/18. 4. Miralax for constipation- pt reports that as of 01/17 she has been moving her bowels for several days and no longer feels this is an issue. 5. aftercare planning I spent ____25__ minutes with the patient and/or on the patient floor today, greater than?50% of which was spent counseling/coordinating care. Reason for contiued inpatient stay Substantial Risk for: harm to self, inability to function and rapid decompensation
[2022-01-18 20:37] VITALS: BP 124/70; PULSE 98; TEMP 36.8; O2SAT 96
[2022-01-18] MEDS: clonazePAM 1 MG TABLET PO (20:57)
[2022-01-19 06:00] VITALS: BP 141/87; PULSE 69; RESP 16; TEMP 36.3; O2SAT 100
[2022-01-19] MEDS: risperiDONE 1 MG TABLET PO (09:46)
[2022-01-19] MEDS: polyethylene glycoL 3350 17 GM POWD.PACK PO (09:46)
--- NOTE | 2022-01-19 12:02 | HO.PSYCHPN ---
Subjective Subjective Date of Service: 01/19/22 Reason For Visit: Depression,SI Interim History: poor sleep due to roommate's dysregulated behaviors, ended up moving to another room for the night, after which she slept well. mood pretty good today. less anxiety than yesterday. no negative side effect from the increased risperidone dose this morning. nevertheless, seems slow to respond with apparent poor executive fxn likely due to persistent thought disorder. per staff, feeling like nothing had changed for her yesterday morning. anxiety and depression 01/20. more social, tearful later in the day. slept separately from roommate. inconsistently attending groups. Mental Status Exam Mental Status Exam Narrative: Appearance:thin casually groomed, fair hygiene Behavior: cooperative psychomotor: less PMR Speech: nml rate, incr amount. less frequent incr latency of response. Thought process: wandering but logical. less paucity of thought. Thought content: no delusions or paranoia expressed Mood: pretty good Affect: more flexible, normo-intense, non-labile. SI: none expressed HI: none expressed VH/AH: none expressed Delusions: none expressed Diagnostics Vital Signs (24Hr): Vital Signs - 24 hr 01/18/22 20:37 01/19/22 06:00 Temperature 98.2 F 97.4 F Pulse Rate 98 69 Respiratory Rate 16 Blood Pressure 124/70 141/87 H Pulse Oximetry 96 100 BMI result Body Mass Index 19.5 Labs Results: 01/12/22 14:14 01/12/22 14:14 Medications Medications Current Medications Acetaminophen (Acetaminophen 325 Mg Tablet) 650 mg PO Q6H PRN PRN Reason: Headache/Pain Mild Scale (1-3) Last Admin: 01/13/22 11:19 Dose: 650 mg Documented by: Al Hydroxide/Mg Hydroxide (Magnesium Hydrox/Alum Hydrox 30 Ml Oral.Susp) 30 ml PO Q6H PRN PRN Reason: Heartburn/Nausea Clonazepam (Clonazepam 1 Mg Tablet) 1 mg PO BEDTIME LEAH Last Admin: 01/18/22 20:57 Dose: 1 mg Documented by: Clonazepam (Clonazepam 0.5 Mg Tablet) 0.5 mg PO DAILY PRN PRN Reason: Anxiety Hydroxyzine HCl (Hydroxyzine Hcl 25 Mg Tablet) 25 mg PO Q6H PRN PRN Reason: Anxiety Ibuprofen (Ibuprofen 600 Mg Tablet) 600 mg PO Q8H PRN PRN Reason: Pain, Mild (Pain Scale 1-3) Last Admin: 01/13/22 00:35 Dose: 600 mg Documented by: Magnesium Hydroxide (Milk Of Magnesia 30 Ml Oral.Susp) 30 ml PO DAILY PRN PRN Reason: Constipation Last Admin: 01/13/22 08:36 Dose: 30 ml Documented by: Polyethylene Glycol (Polyethylene Glycol 3350 17 Gm Powd.Pack) 17 gm PO DAILY LEAH Last Admin: 01/19/22 09:46 Dose: 17 gm Documented by: Risperidone (Risperidone 0.5 Mg Tablet) 0.5 mg PO BEDTIME LEAH Last Admin: 01/18/22 20:57 Dose: 0.5 mg Documented by: Risperidone (Risperidone 1 Mg Tablet) 1 mg PO DAILY [facility] Last Admin: 01/19/22 09:46 Dose: 1 mg Documented by: Trazodone HCl (Trazodone Hcl 50 Mg Tablet) 50 mg PO BEDTIME PRN PRN Reason: Insomnia Last Admin: 01/13/22 00:36 Dose: 50 mg Documented by: Trolamine Salicylate/Aloe Vera (Trolamine Salicylate 10%/Aloe Cream 35.4 Gm) 1 appl TOPICAL QID PRN PRN Reason: left toes pain Allergies Allergies Allergy/AdvReac Type Severity Reaction Status Date / Time diphenhydramine Allergy Unknown Unknown Verified 01/13/22 03:25 [From Benadryl] Assessment & Plan Assessment & Plan (1) Psychosis: Status: Acute Code(s): F29 - Unspecified psychosis not due to a substance or known physiological condition Plan Mrs. Ch is a 66 year-old woman w/ hx of persecutory/paranoid delusions for the past years. She was brought [place] [facility] [place] as pt wrote [place] due to paranoid delusions. Her does report an underlying anxious bordering on paranoia traits for past 25 years but severity much worse in past year. R/o delusional disorder, psychosis related to neurocognitive d/o, MDD with psychosis. We discussed risks, benefits and alternative treatment options. PLAN 1. Admit on CV, 15 minutes checks for safety 2. continue clonazepam 0.5mg po daily prn, clonazepam 1mg po qhs. 3. Started risperidone 0.5mg po BID- titrate as appropriate. pt prefers split dose of risperidone. morning dose increased to 1 mg as of 01/18. appears less anxious and less slowed with increase in risperidone dosing. 4. Miralax for constipation- pt reports that as of 01/17 she has been moving her bowels for several days and no longer feels this is an issue. 5. aftercare planning I spent ___25___ minutes with the patient and/or on the patient floor today, greater than?50% of which was spent counseling/coordinating care. Reason for contiued inpatient stay Substantial Risk for: inability to function and rapid decompensation
[2022-01-19 20:15] VITALS: BP 130/77; PULSE 82; RESP 18; TEMP 36.6; O2SAT 97
[2022-01-19] MEDS: clonazePAM 1 MG TABLET PO (21:32)
[2022-01-19] MEDS: risperiDONE 0.5 MG TABLET PO (21:32)
[2022-01-20 07:00] VITALS: BMI 21.1
[2022-01-20 09:10] VITALS: BP 121/78; PULSE 87; RESP 16; TEMP 36.7; O2SAT 98
[2022-01-20] MEDS: risperiDONE 1 MG TABLET PO ×2 (09:53→21:27)
[2022-01-20] MEDS: polyethylene glycoL 3350 17 GM POWD.PACK PO (09:53)
--- NOTE | 2022-01-20 13:49 | HO.PSYCHPN ---
Subjective Subjective Date of Service: 01/20/22 Reason For Visit: Depression,SI Interim History: pt found in her room speaking with roommate during group time. she was amenable to interview. she reported having had a better sleep last night. her anxiety was described as not too bad. MD broaches her SI with plan and note [employer] and she states she was feeling very overwhelmed in her life circumstance. while explaining, she is vague and lacking in clear explanation of what she was overwhelmed by. comes across as evasive, almost. she feels hopeful that she might manage her problems better now that she is eating and sleeping. very very reluctantly agrees to try increased dose of risperidone at HS. also asks for melatonin, which is Rxed. per staff, very anxious. reported good sleep last night. active, visible. Mental Status Exam Mental Status Exam Narrative: Appearance:thin casually groomed, fair hygiene Behavior: cooperative psychomotor: less PMR Speech: nml rate, incr amount. nml latency of response. Thought process: logical. less paucity of thought. Thought content: no delusions or paranoia expressed Mood: anxiety not too bad Affect: more flexible, normo-intense, non-labile. SI: none expressed HI: none expressed VH/AH: none expressed Delusions: none expressed Diagnostics Vital Signs (24Hr): Vital Signs - 24 hr 01/19/22 20:15 01/20/22 09:10 Temperature 97.8 F 98.1 F Pulse Rate 82 87 Respiratory Rate 18 16 Blood Pressure 130/77 121/78 Pulse Oximetry 97 98 BMI result Body Mass Index 21.1 Labs Results: 01/12/22 14:14 01/12/22 14:14 Medications Medications Current Medications Acetaminophen (Acetaminophen 325 Mg Tablet) 650 mg PO Q6H PRN PRN Reason: Headache/Pain Mild Scale (1-3) Last Admin: 01/13/22 11:19 Dose: 650 mg Documented by: Al Hydroxide/Mg Hydroxide (Magnesium Hydrox/Alum Hydrox 30 Ml Oral.Susp) 30 ml PO Q6H PRN PRN Reason: Heartburn/Nausea Clonazepam (Clonazepam 1 Mg Tablet) 1 mg PO BEDTIME LEAH Last Admin: 01/19/22 21:32 Dose: 1 mg Documented by: Clonazepam (Clonazepam 0.5 Mg Tablet) 0.5 mg PO DAILY PRN PRN Reason: Anxiety Ibuprofen (Ibuprofen 600 Mg Tablet) 600 mg PO Q8H PRN PRN Reason: Pain, Mild (Pain Scale 1-3) Last Admin: 01/13/22 00:35 Dose: 600 mg Documented by: Magnesium Hydroxide (Milk Of Magnesia 30 Ml Oral.Susp) 30 ml PO DAILY PRN PRN Reason: Constipation Last Admin: 01/13/22 08:36 Dose: 30 ml Documented by: Melatonin (Melatonin 3 Mg Tablet) 3 mg PO DAILY@1900 [facility] Polyethylene Glycol (Polyethylene Glycol 3350 17 Gm Powd.Pack) 17 gm PO DAILY LEAH Last Admin: 01/20/22 09:53 Dose: 17 gm Documented by: Risperidone (Risperidone 1 Mg Tablet) 1 mg PO DAILY [facility] Last Admin: 01/20/22 09:53 Dose: 1 mg Documented by: Risperidone (Risperidone 1 Mg Tablet) 1 mg PO BEDTIME LEAH Trazodone HCl (Trazodone Hcl 50 Mg Tablet) 50 mg PO BEDTIME PRN PRN Reason: Insomnia Trolamine Salicylate/Aloe Vera (Trolamine Salicylate 10%/Aloe Cream 35.4 Gm) 1 appl TOPICAL QID PRN PRN Reason: left toes pain Allergies Allergies Allergy/AdvReac Type Severity Reaction Status Date / Time diphenhydramine Allergy Unknown Unknown Verified 01/13/22 03:25 [From Sandra] Assessment & Plan Assessment & Plan (1) Psychosis: Status: Acute Code(s): F29 - Unspecified psychosis not due to a substance or known physiological condition Plan Mrs. Ch is a 66 year-old woman w/ hx of persecutory/paranoid delusions for the past years. She was brought to [facility] by as pt wrote [place] due to paranoid delusions. Her does report an underlying anxious bordering on paranoia traits for past 25 years but severity much worse in past year. R/o delusional disorder, psychosis related to neurocognitive d/o, MDD with psychosis. We discussed risks, benefits and alternative treatment options. PLAN 1. Admit on CV, 15 minutes checks for safety 2. continue clonazepam 0.5mg po daily prn, clonazepam 1mg po qhs. 3. Started risperidone 0.5mg po BID- titrate as appropriate. pt prefers split dose of risperidone. morning dose increased to 1 mg as of 01/18. appears less anxious and less slowed with increase in risperidone dosing. evening dose increased to 1 mg as of 01/20 in hope for continued benefit. 4. Miralax for constipation- pt reports that as of 01/17 she has been moving her bowels for several days and no longer feels this is an issue. 5. aftercare planning I spent ___25___ minutes with the patient and/or on the patient floor today, greater than?50% of which was spent counseling/coordinating care. Reason for contiued inpatient stay Substantial Risk for: inability to function and rapid decompensation
[2022-01-20 20:15] VITALS: BP 130/75; PULSE 71; RESP 18; TEMP 36.6; O2SAT 99
[2022-01-20] MEDS: Melatonin 3 MG TABLET PO (20:36)
[2022-01-20] MEDS: clonazePAM 1 MG TABLET PO (21:27)
[2022-01-21] MEDS: polyethylene glycoL 3350 17 GM POWD.PACK PO (09:48)
[2022-01-21] MEDS: risperiDONE 1 MG TABLET PO ×2 (09:48→21:04)
[2022-01-21 10:10] VITALS: BP 136/75; PULSE 86; RESP 18; TEMP 36.5; O2SAT 99
--- NOTE | 2022-01-21 14:46 | P.PNPSI_ITS ---
Subjective Subjective Date of Service: 01/21/22 Reason For Visit: Depression,SI Interim History: pt reports she is feeling less tense, less anxious. more forthcoming regarding chronic SI, which continues, but which she says she is warding off, putting to the back of her mind. declines to consider SSRI for dep/anx, stating her son was on effexor and became suicidal, so she doesn't trust those kinds of medications. would ilke to remain on current rgimen for now. per staff, concerned about medications increase last night. safe, visible. pleasant. evasive re safety. attending groups. up at 0145 feeling anxious, blamed it on risperidone dosing increase. Mental Status Exam Mental Status Exam Narrative: Appearance:thin casually groomed, fair hygiene Behavior: cooperative psychomotor: less PMR Speech: nml rate, incr amount. nml latency of response. Thought process: logical. less paucity of thought. Thought content: no delusions or paranoia expressed Mood: less anxious Affect: more flexible, normo-intense, non-labile. SI: chronic, passive currently HI: none expressed VH/AH: none expressed Delusions: none expressed Diagnostics Vital Signs (24Hr): Vital Signs - 24 hr 01/20/22 20:15 01/21/22 10:10 Temperature 97.9 F 97.7 F Pulse Rate 71 86 Respiratory Rate 18 18 Blood Pressure 130/75 136/75 Pulse Oximetry 99 99 BMI result Body Mass Index 21.1 Labs Results: 01/12/22 14:14 01/12/22 14:14 Medications Medications Current Medications Acetaminophen (Acetaminophen 325 Mg Tablet) 650 mg PO Q6H PRN PRN Reason: Headache/Pain Mild Scale (1-3) Last Admin: 01/13/22 11:19 Dose: 650 mg Documented by: Al Hydroxide/Mg Hydroxide (Magnesium Hydrox/Alum Hydrox 30 Ml Oral.Susp) 30 ml PO Q6H PRN PRN Reason: Heartburn/Nausea Clonazepam (Clonazepam 1 Mg Tablet) 1 mg PO BEDTIME LEAH Last Admin: 01/20/22 21:27 Dose: 1 mg Documented by: Clonazepam (Clonazepam 0.5 Mg Tablet) 0.5 mg PO DAILY PRN PRN Reason: Anxiety Ibuprofen (Ibuprofen 600 Mg Tablet) 600 mg PO Q8H PRN PRN Reason: Pain, Mild (Pain Scale 1-3) Last Admin: 01/13/22 00:35 Dose: 600 mg Documented by: Magnesium Hydroxide (Milk Of Magnesia 30 Ml Oral.Susp) 30 ml PO DAILY PRN PRN Reason: Constipation Last Admin: 01/13/22 08:36 Dose: 30 ml Documented by: Melatonin (Melatonin 3 Mg Tablet) 3 mg PO DAILY@1900 [facility] Last Admin: 01/20/22 20:36 Dose: 3 mg Documented by: Polyethylene Glycol (Polyethylene Glycol 3350 17 Gm Powd.Pack) 17 gm PO DAILY [facility] Last Admin: 01/21/22 09:48 Dose: 17 gm Documented by: Risperidone (Risperidone 1 Mg Tablet) 1 mg PO DAILY [facility] Last Admin: 01/21/22 09:48 Dose: 1 mg Documented by: Risperidone (Risperidone 1 Mg Tablet) 1 mg PO BEDTIME [facility] Last Admin: 01/20/22 21:27 Dose: 1 mg Documented by: Trazodone HCl (Trazodone Hcl 50 Mg Tablet) 50 mg PO BEDTIME PRN PRN Reason: Insomnia Trolamine Salicylate/Aloe Vera (Trolamine Salicylate 10%/Aloe Cream 35.4 Gm) 1 appl TOPICAL QID PRN PRN Reason: left toes pain Allergies Allergies Allergy/AdvReac Type Severity Reaction Status Date / Time diphenhydramine Allergy Unknown Unknown Verified 01/13/22 03:25 [From Benjosel] Assessment & Plan Assessment & Plan (1) Psychosis: Status: Acute Code(s): F29 - Unspecified psychosis not due to a substance or known physiological condition Plan Mrs. Ch is a 66 year-old woman w/ hx of persecutory/paranoid delusions for the past years. She was brought to [facility] by as pt wrote [place] due to paranoid delusions. Her does report an underlying anxious bordering on paranoia traits for past 25 years but severity much worse in past year. R/o delusional disorder, p sychosis related to neurocognitive d/o, MDD with psychosis. We discussed risks, benefits and alternative treatment options. PLAN 1. Admit on CV, 15 minutes checks for safety 2. continue clonazepam 0.5mg po daily prn, clonazepam 1mg po qhs. 3. Started risperidone 0.5mg po BID- titrate as appropriate. pt prefers split dose of risperidone. morning dose increased to 1 mg as of 01/18. appears less a nxious and less slowed with increase in risperidone dosing. evening dose increased to 1 mg as of 01/20 in hope for continued benefit. 4. Miralax for constipation- pt reports that as of 01/17 she has been moving her bowels for several days and no longer feels this is an issue. 5. aftercare planning. tentative DC date thursday 01/25. I spent __25____ minutes with the patient and/or on the patient floor today, greater than?50% of which was spent counseling/coordinating care. Reason for contiued inpatient stay Substantial Risk for: harm to self
[2022-01-21 20:30] VITALS: BP 134/74; PULSE 65; TEMP 36.6; O2SAT 98
[2022-01-21] MEDS: Melatonin 3 MG TABLET PO (20:42)
[2022-01-21] MEDS: clonazePAM 1 MG TABLET PO (21:05)
[2022-01-22 09:00] VITALS: BP 124/83; PULSE 68; TEMP 36.4; O2SAT 99
[2022-01-22] MEDS: polyethylene glycoL 3350 17 GM POWD.PACK PO (09:04)
[2022-01-22] MEDS: risperiDONE 1 MG TABLET PO (09:04)
--- NOTE | 2022-01-22 09:51 | P.PNPSI_ITS ---
Subjective Subjective Date of Service: 01/22/22 Reason For Visit: Depression,SI Subjective Notes: Conditional Voluntary Medical Problems Affecting Mental Status: No Interim History: pt reports not sleepig well last night. she states the risperdal makes her feel awake. she dneies discomfort (ie, akathesia) just wakefulness. She reports she has a history of paradoxical reactions to meds and gives example of benadryl causing anxiety Medication Compliance: Yes Side effects from medications: Yes Attending Groups: Intermittent Review of Systems Acute medical concerns: No Medical Review of Systems: unchanged Review of Systems Review of Systems Constitutional : No Fever, No Chills, pos weight loss, pos anorexia ENT/Mouth : No Ear Pain, No Nasal Congestion, No sore throat Eyes: No Eye Pain, No Swelling, No Redness Cardiovascular : No Chest Pain, No SOB Respiratory : No Cough, No Sputum, No Dyspnea Gastrointestinal : No Nausea, No Vomiting, No Diarrhea, No Hematochezia, No Melena Genitourinary : No Dysuria, No Urinary Frequency, No Hematuria Musculoskeletal : No Myalgias Skin : No Skin Lesions, No rash Neuro : No Weakness, No Numbness, No Paresthesias, No Dizziness, No Headache Psych : positive Anxiety, positive Depression, positive SI no HI Heme/Lymph: No Lymphadenopathy Endocrine : No Polyuria, No Polydipsia All other systems reviewed and are negative Constitutional: Reports difficulty sleeping, Reports fatigue, Reports lethargy, Reports poor appetite and Reports weight loss Eyes: Reports no additional eye complaints Cardiovascular: Denies chest pain, Denies chest pain at rest, Denies lightheadedness, Denies dyspnea and Denies dyspnea on exertion Respiratory: Denies chest congestion, Denies cough, Denies dyspnea and Denies dyspnea on exertion Gastrointestinal: Reports constipation, Reports GI cramping, Denies dyspepsia, Denies heartburn, Denies nausea, Denies vomiting and Denies hematemesis Musculoskeletal: Reports numbness (bilat feet) Reports numbness (bilat feet) Endocrine: Reports fatigue Mental Status Exam Mental Status Exam Narrative: Appearance:thin casually groomed, fair hygiene Behavior: cooperative psychomotor: fidgety Speech: nml rate, nml latency of response. Thought process: logical. goal oriented Thought content: no delusions or paranoia expressed Mood: less anxious Affect: more flexible, normo-intense, non-labile. SI: chronic, passive currently HI: none expressed VH/AH: none expressed Delusions: none expressed judgment and insight: fair, fair Judgement: Fair Diagnostics Vital Signs (24Hr): Vital Signs - 24 hr 01/21/22 10:10 01/21/22 20:30 01/22/22 09:00 Temperature 97.7 F 97.8 F 97.6 F Pulse Rate 86 65 68 Respiratory Rate 18 Blood Pressure 136/75 134/74 124/83 Pulse Oximetry 99 98 99 BMI result Body Mass Index 21.1 Labs Results: 01/12/22 14:14 01/12/22 14:14 Medications Medications Current Medications Acetaminophen (Acetaminophen 325 Mg Tablet) 650 mg PO Q6H PRN PRN Reason: Headache/Pain Mild Scale (1-3) Last Admin: 01/13/22 11:19 Dose: 650 mg Documented by: Al Hydroxide/Mg Hydroxide (Magnesium Hydrox/Alum Hydrox 30 Ml Oral.Susp) 30 ml PO Q6H PRN PRN Reason: Heartburn/Nausea Clonazepam (Clonazepam 1 Mg Tablet) 1 mg PO BEDTIME [facility] Last Admin: 01/21/22 21:05 Dose: 1 mg Documented by: Clonazepam (Clonazepam 0.5 Mg Tablet) 0.5 mg PO DAILY PRN PRN Reason: Anxiety Ibuprofen (Ibuprofen 600 Mg Tablet) 600 mg PO Q8H PRN PRN Reason: Pain, Mild (Pain Scale 1-3) Last Admin: 01/13/22 00:35 Dose: 600 mg Documented by: Magnesium Hydroxide (Milk Of Magnesia 30 Ml Oral.Susp) 30 ml PO DAILY PRN PRN Reason: Constipation Last Admin: 01/13/22 08:36 Dose: 30 ml Documented by: Melatonin (Melatonin 3 Mg Tablet) 3 mg PO DAILY@1900 [facility] Last Admin: 01/21/22 20:42 Dose: 3 mg Documented by: Polyethylene Glycol (Polyethylene Glycol 3350 17 Gm Powd.Pack) 17 gm PO DAILY [facility] Last Admin: 01/22/22 09:04 Dose: 17 gm Documented by: Risperidone (Risperidone 1 Mg Tablet) 1 mg PO DAILY [facility] Last Admin: 01/22/22 09:04 Dose: 1 mg Documented by: Risperidone (Risperidone 1 Mg Tablet) 1 mg PO BEDTIME [facility] Last Admin: 01/21/22 21:04 Dose: 1 mg Documented by: Trazodone HCl (Trazodone Hcl 50 Mg Tablet) 50 mg PO BEDTIME PRN PRN Reason: Insomnia Trolamine Salicylate/Aloe Vera (Trolamine Salicylate 10%/Aloe Cream 35.4 Gm) 1 appl TOPICAL QID PRN PRN Reason: left toes pain Allergies Allergies Allergy/AdvReac Type Severity Reaction Status Date / Time diphenhydramine Allergy Unknown Unknown Verified 01/13/22 03:25 [From Benadryl] Assessment & Plan Assessment & Plan (1) Psychosis: Status: Acute Code(s): F29 - Unspecified psychosis not due to a substance or known physiological condition Plan Mrs. Ch is a 66 year-old woman w/ hx of persecutory/paranoid delusions for the past years. She was brought to [facility] by as pt wrote [place] to paranoid delusions. Her does report an underlying anxious bordering on paranoia traits for past 25 years but severity much worse in past year. R/o delusional disorder, psychosis related to neurocognitive d/o, MDD with psychosis. We discussed risks, benefits and alternative treatment options. PLAN 1. Admit on CV, 15 minutes checks for safety 2. continue clonazepam 0.5mg po daily prn, clonazepam 1mg po qhs. 3. Risperdal dosing change at patient request: risperal 1mg in am 0.5mg at 3pm and 0.5 mg at HS as of 01/22 4. reassess response to meds/sleep 5. aftercare planning. tentative DC date thursday 01/25. I spent __15____ minutes with the patient and/or on the patient floor today, greater than?50% of which was spent counseling/coordinating care. Patient educated on: medication risk/benefits and therapeutic strategies Informed Consent: understands and further education needed Reason for contiued inpatient stay Substantial Risk for: harm to self, inability to function and rapid decompensation
[2022-01-22 20:25] VITALS: BP 139/87; PULSE 76; TEMP 36.2; O2SAT 98
[2022-01-22] MEDS: Melatonin 3 MG TABLET PO (20:27)
[2022-01-22] MEDS: clonazePAM 1 MG TABLET PO (21:08)
[2022-01-22] MEDS: risperiDONE 0.5 MG TABLET PO (21:09)
[2022-01-23 06:00] VITALS: BP 138/80; PULSE 69; RESP 20; TEMP 36.2; O2SAT 100
[2022-01-23] MEDS: risperiDONE 1 MG TABLET PO (09:35)
[2022-01-23] MEDS: polyethylene glycoL 3350 17 GM POWD.PACK PO (09:36)
--- NOTE | 2022-01-23 10:46 | P.PNPSI_ITS ---
Subjective Subjective Date of Service: 01/23/22 Reason For Visit: Depression,SI Interim History: pt reports sleeping a little better with med change; she states the risperdal makes her feel awake. she dneies discomfort (ie, akathesia) just wakefulness. She reports she has a history of paradoxical reactions to meds and gives example of benadryl causing anxiety Medication Compliance: Yes Side effects from medications: No Attending Groups: Yes Review of Systems Acute medical concerns: No Medical Review of Systems: unchanged Review of Systems Review of Systems Constitutional : No Fever, No Chills, pos weight loss, pos anorexia ENT/Mouth : No Ear Pain, No Nasal Congestion, No sore throat Eyes: No Eye Pain, No Swelling, No Redness Cardiovascular : No Chest Pain, No SOB Respiratory : No Cough, No Sputum, No Dyspnea Gastrointestinal : No Nausea, No Vomiting, No Diarrhea, No Hematochezia, No Melena Genitourinary : No Dysuria, No Urinary Frequency, No Hematuria Musculoskeletal : No Myalgias Skin : No Skin Lesions, No rash Neuro : No Weakness, No Numbness, No Paresthesias, No Dizziness, No Headache Psych : positive Anxiety, positive Depression, positive SI no HI Heme/Lymph: No Lymphadenopathy Endocrine : No Polyuria, No Polydipsia All other systems reviewed and are negative Constitutional: Reports difficulty sleeping, Reports fatigue, Reports lethargy, Reports poor appetite and Reports weight loss Eyes: Reports no additional eye complaints Cardiovascular: Denies chest pain, Denies chest pain at rest, Denies lightheadedness, Denies dyspnea and Denies dyspnea on exertion Respiratory: Denies chest congestion, Denies cough, Denies dyspnea and Denies dyspnea on exertion Gastrointestinal: Reports constipation, Reports GI cramping, Denies dyspepsia, Denies heartburn, Denies nausea, Denies vomiting and Denies hematemesis Musculoskeletal: Reports numbness (bilat feet) Reports numbness (bilat feet) Endocrine: Reports fatigue Mental Status Exam Mental Status Exam Narrative: Appearance:thin casually groomed, fair hygiene Behavior: cooperative psychomotor: fidgety Speech: nml rate, nml latency of response. Thought process: logical. goal oriented Thought content: no delusions or paranoia expressed Mood: less anxious Affect: more flexible, normo-intense, non-labile. SI: chronic, passive currently HI: none expressed VH/AH: none expressed Delusions: none expressed judgment and insight: fair, fair Diagnostics Vital Signs (24Hr): Vital Signs - 24 hr 01/22/22 20:25 01/23/22 06:00 Temperature 97.2 F 97.2 F Pulse Rate 76 69 Respiratory Rate 20 Blood Pressure 139/87 138/80 Pulse Oximetry 98 100 BMI result Body Mass Index 21.1 Labs Results: 01/12/22 14:14 01/12/22 14:14 Medications Medications Current Medications Acetaminophen (Acetaminophen 325 Mg Tablet) 650 mg PO Q6H PRN PRN Reason: Headache/Pain Mild Scale (1-3) Last Admin: 01/13/22 11:19 Dose: 650 mg Documented by: Al Hydroxide/Mg Hydroxide (Magnesium Hydrox/Alum Hydrox 30 Ml Oral.Susp) 30 ml PO Q6H PRN PRN Reason: Heartburn/Nausea Clonazepam (Clonazepam 1 Mg Tablet) 1 mg PO BEDTIME [facility] Last Admin: 01/22/22 21:08 Dose: 1 mg Documented by: Clonazepam (Clonazepam 0.5 Mg Tablet) 0.5 mg PO DAILY PRN PRN Reason: Anxiety Ibuprofen (Ibuprofen 600 Mg Tablet) 600 mg PO Q8H PRN PRN Reason: Pain, Mild (Pain Scale 1-3) Last Admin: 01/13/22 00:35 Dose: 600 mg Documented by: Magnesium Hydroxide (Milk Of Magnesia 30 Ml Oral.Susp) 30 ml PO DAILY PRN PRN Reason: Constipation Last Admin: 01/13/22 08:36 Dose: 30 ml Documented by: Melatonin (Melatonin 3 Mg Tablet) 3 mg PO DAILY@1900 [facility] Last Admin: 01/22/22 20:27 Dose: 3 mg Documented by: Polyethylene Glycol (Polyethylene Glycol 3350 17 Gm Powd.Pack) 17 gm PO DAILY [facility] Last Admin: 01/23/22 09:36 Dose: 17 gm Documented by: Risperidone (Risperidone 1 Mg Tablet) 1 mg PO DAILY [facility] Last Admin: 01/23/22 09:35 Dose: 1 mg Documented by: Risperidone (Risperidone 0.5 Mg Tablet) 0.5 mg PO BEDTIME [facility] Last Admin: 01/22/22 21:09 Dose: 0.5 mg Documented by: Risperidone (Risperidone 0.5 Mg Tablet) 0.5 mg PO DAILY [facility] Trazodone HCl (Trazodone Hcl 50 Mg Tablet) 50 mg PO BEDTIME PRN PRN Reason: Insomnia Trolamine Salicylate/Aloe Vera (Trolamine Salicylate 10%/Aloe Cream 35.4 Gm) 1 appl TOPICAL QID PRN PRN Reason: left toes pain Allergies Allergies Allergy/AdvReac Type Severity Reaction Status Date / Time diphenhydramine Allergy Unknown Unknown Verified 01/13/22 03:25 [From Benadryl] Assessment & Plan Assessment & Plan (1) Psychosis: Status: Acute Code(s): F29 - Unspecified psychosis not due to a substance or known physiological condition Plan Mrs. Ch is a 66 year-old woman w/ hx of persecutory/paranoid delusions for the past years. She was brought to [facility] by as pt wrote [place] paranoid delusions. Her does report an underlying anxious bordering on paranoia traits for past 25 years but severity much worse in past year. R/o delusional disorder, psychosis related to neurocognitive d/o, MDD with psychosis. We discussed risks, benefits and alternative treatment options. PLAN 1. Admit on CV, 15 minutes checks for safety 2. continue clonazepam 0.5mg po daily prn, clonazepam 1mg po qhs. 3. Risperdal dosing change at patient request: risperal 1mg in am 0.5mg at 3pm and 0.5 mg at HS as of 01/22 4. reassess response to meds/sleep 5. aftercare planning. tentative DC date thursday 01/25. I spent ___15___ minutes with the patient and/or on the patient floor today, greater than?50% of which was spent counseling/coordinating care. Reason for contiued inpatient stay Substantial Risk for: inability to function and rapid decompensation
[2022-01-23] MEDS: risperiDONE 0.5 MG TABLET PO ×2 (14:53→21:53)
[2022-01-23 18:00] VITALS: BP 136/84; PULSE 99; RESP 18; TEMP 37; O2SAT 96
[2022-01-23] MEDS: Melatonin 3 MG TABLET PO (21:19)
[2022-01-23] MEDS: clonazePAM 1 MG TABLET PO (21:53)
[2022-01-24 08:27] VITALS: BP 129/76; PULSE 81; RESP 18; TEMP 36.8; O2SAT 99
[2022-01-24] MEDS: polyethylene glycoL 3350 17 GM POWD.PACK PO (08:46)
[2022-01-24] MEDS: risperiDONE 1 MG TABLET PO (08:46)
[2022-01-24] MEDS: risperiDONE 0.5 MG TABLET PO (08:47)
--- NOTE | 2022-01-24 14:03 | HO.PSYCHPN ---
Subjective Subjective Date of Service: 01/24/22 Reason For Visit: Depression,SI Interim History: pt appears in better spirits today, more spontaneous, smiling. planning to go home tomorrow. feeling better on less risperidone at bedtime - may have some element of akathisia. will to take 1.5 in the morning alone, will DC the HS dose of 0.5. she states that the weekend went well. she spent time reading, which was progress, as her mental state had left her unable to read in recent weeks. mood much better, no SI. hopeful. per staff, slept 8 hours. slept well after decreasing HS dose of risperidone to 0.5 mg. dep 2, anx 3-4. no SI/HI/AVH. good ADLs. attending all groups. discharge tomorrow at 11. Mental Status Exam Mental Status Exam Narrative: Appearance:thin casually groomed, fair hygiene Behavior: cooperative psychomotor: fidgety Speech: nml rate, nml latency of response. Thought process: logical. goal oriented Thought content: no delusions or paranoia expressed Mood: much better Affect: more flexible, normo-intense, non-labile. SI: denies HI: none expressed VH/AH: none expressed Delusions: none expressed judgment and insight: fair, fair Diagnostics Vital Signs (24Hr): Vital Signs - 24 hr 01/23/22 18:00 01/24/22 08:27 Temperature 98.6 F 98.2 F Pulse Rate 99 81 Respiratory Rate 18 18 Blood Pressure 136/84 129/76 Pulse Oximetry 96 99 BMI result Body Mass Index 21.1 Labs Results: 01/12/22 14:14 01/12/22 14:14 Medications Medications Current Medications Acetaminophen (Acetaminophen 325 Mg Tablet) 650 mg PO Q6H PRN PRN Reason: Headache/Pain Mild Scale (1-3) Last Admin: 01/13/22 11:19 Dose: 650 mg Documented by: Al Hydroxide/Mg Hydroxide (Magnesium Hydrox/Alum Hydrox 30 Ml Oral.Susp) 30 ml PO Q6H PRN PRN Reason: Heartburn/Nausea Clonazepam (Clonazepam 1 Mg Tablet) 1 mg PO BEDTIME [facility] Last Admin: 01/23/22 21:53 Dose: 1 mg Documented by: Clonazepam (Clonazepam 0.5 Mg Tablet) 0.5 mg PO DAILY PRN PRN Reason: Anxiety Ibuprofen (Ibuprofen 600 Mg Tablet) 600 mg PO Q8H PRN PRN Reason: Pain, Mild (Pain Scale 1-3) Last Admin: 01/13/22 00:35 Dose: 600 mg Documented by: Magnesium Hydroxide (Milk Of Magnesia 30 Ml Oral.Susp) 30 ml PO DAILY PRN PRN Reason: Constipation Last Admin: 01/13/22 08:36 Dose: 30 ml Documented by: Melatonin (Melatonin 3 Mg Tablet) 3 mg PO DAILY@1900 [facility] Last Admin: 01/23/22 21:19 Dose: 3 mg Documented by: Polyethylene Glycol (Polyethylene Glycol 3350 17 Gm Powd.Pack) 17 gm PO DAILY [facility] Last Admin: 01/24/22 08:46 Dose: 17 gm Documented by: Risperidone (Risperidone 1 Mg Tablet) 1 mg PO DAILY [facility] Last Admin: 01/24/22 08:46 Dose: 1 mg Documented by: Risperidone (Risperidone 0.5 Mg Tablet) 0.5 mg PO DAILY [facility] Last Admin: 01/24/22 08:47 Dose: 0.5 mg Documented by: Trazodone HCl (Trazodone Hcl 50 Mg Tablet) 50 mg PO BEDTIME PRN PRN Reason: Insomnia Trolamine Salicylate/Aloe Vera (Trolamine Salicylate 10%/Aloe Cream 35.4 Gm) 1 appl TOPICAL QID PRN PRN Reason: left toes pain Allergies Allergies Allergy/AdvReac Type Severity Reaction Status Date / Time diphenhydramine Allergy Unknown Unknown Verified 01/13/22 03:25 [From Benadryl] Assessment & Plan Assessment & Plan (1) Psychosis: Status: Acute Code(s): F29 - Unspecified psychosis not due to a substance or known physiological condition Plan Mrs. Ch is a 66 year-old woman w/ hx of persecutory/paranoid delusions for the past years. She was brought to [facility] [place] [facility] by as pt wrote [place] to paranoid delusions. Her does report an underlying anxious bordering on paranoia traits for past 25 years but severity much worse in past year. R/o delusional disorder, psychosis related to neurocognitive d/o, MDD with psychosis. We discussed risks, benefits and alternative treatment options. PLAN 1. Admit on CV, 15 minutes checks for safety 2. continue clonazepam 0.5mg po daily prn, clonazepam 1mg po qhs. 3. Risperdal dosing change at patient request: risperidone 1.5 QAM 4. reassess response to meds/sleep 5. aftercare planning. DC date thursday 01/25 @ 1100. I spent __25____ minutes with the patient and/or on the patient floor today, greater than?50% of which was spent counseling/coordinating care. Reason for contiued inpatient stay Substantial Risk for: rapid decompensation
[2022-01-24 18:00] VITALS: BP 116/78; PULSE 84; RESP 18; TEMP 36.3; O2SAT 99
[2022-01-24] MEDS: Melatonin 3 MG TABLET PO (21:05)
[2022-01-24] MEDS: clonazePAM 1 MG TABLET PO (21:36)
[2022-01-25] MEDS: risperiDONE 0.5 MG TABLET PO (08:53)
[2022-01-25] MEDS: risperiDONE 1 MG TABLET PO (08:53)
[2022-01-25] MEDS: polyethylene glycoL 3350 17 GM POWD.PACK PO (08:53)
[2022-01-25 10:01] VITALS: BP 118/76; PULSE 76; RESP 18; TEMP 36.4; O2SAT 98
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
--- NOTE | 2022-01-25 10:51 | PC.NURSE ---
Patient alert, oriented x3. Patient denies AH/VH, reports she looks forward to returning home, denies SI/HI. Reviewed discharge instructions w/ patient, patient verbalized understanding, no concerns reported. Reviewed appointments, belongings, patient verbalized understanding, no concerns reported.
== END 2022-01-25 11:13 | disposition home or self-care (01) | DRG 760 ==
LOC: HO.ED 14:30 → HO.PADLT16 21:23
PROVIDERS: Physician Assistant; Registered Nurse; Social Worker; Admitting Provider Psychiatry & Neurology Psychiatry; Emergency Provider Emergency Medicine; PCP Family Medicine; Visit Provider Psychiatry & Neurology Psychiatry
DX: F22 Delusional disorders (principal); R45.851 Suicidal ideations; F41.9 Anxiety disorder, unspecified; Z20.822 Contact with and (suspected) exposure to COVID-19; Z79.899 Other long term (current) drug therapy
CPT/HCPCS: 36415; 80048; 80061; 80076; 80307; 81003; 82607; 82746; 83036; 83690; 83735; 84439; 84443; 85025; 87635; 93005; 99285

== ENCOUNTER 2024-09-24 16:59 | Emergency (ER) | payer MEDICARE, SELFPAY ==
[2024-09-24 17:06] VITALS: BP 138/96; PULSE 118; RESP 24; TEMP 36.7; O2SAT 98; BMI 24.4
[2024-09-24 17:53] LABS: MANUAL DIFF FLAG NO
[2024-09-24 18:06] LABS: Anion Gap 14 (12-20); Blood Urea Nitrogen 22 mg/dL (9-16); Calcium 8.6 mg/dL (8.4-10.2); Carbon Dioxide 24 mmol/L (22-29); Chloride 105 mmol/L (96-108); Creatinine Clr Calc Pharmacy 74.7; Estimated Glomerular Filt Rate > 60; Glucose Random 131 mg/dL (60-115); Sodium 139 mmol/L (135-145)
[2024-09-24 18:07] LABS: Basophils Percent Auto 0.2 % (0-2); Eosinophils Absolute Auto 0.2 X10*3/uL (0.0-0.4); Eosinophils Percent Auto 1.6 % (0-4); Hematocrit 31.6 % (37.0-47.0); Imm Gran Abs Auto 0.07 X10*3/uL (0.00-0.03); Imm Gran Pct Auto 0.7 % (0.0-0.4); Lymphocytes Absolute Auto 0.9 X10*3/uL (1.2-4.9); Lymphocytes Percent Auto 9.4 % (20-40); Mean Corpuscular HGB Conc 31.6 g/dl (31.0-35.0); Mean Corpuscular Volume 91.6 fL (80.0-98.0); Mean Platelet Volume 8.8 fL (9.4-12.3); Monocytes Absolute Auto 0.7 X10*3/uL (0.1-1.2); Monocytes Percent Auto 6.8 % (2-11); Neutrophils Absolute Auto 8.1 x10*3/uL (2.0-8.3); Neutrophils Percent Auto 81.3 % (45-73); Platelet Count 424 X10*3/uL (160-400); Red Blood Count 3.45 X10*6/uL (4.20-5.50); Red Cell Distribution Width 13.2 % (11.0-16.0)
[2024-09-24 18:14] LABS: B Type Natriuretic Peptide 156 pg/mL (<100); Troponin-I High Sensitivity 29.9 ng/L (<3.5-17.0)
[2024-09-24 22:22] VITALS: BP 138/82; PULSE 149; RESP 20; TEMP 36.7; O2SAT 97
[2024-09-25 00:05] VITALS: BP 136/74; PULSE 103; RESP 20; TEMP 37.2; O2SAT 98
[2024-09-25 04:00] VITALS: BP 103/58; PULSE 98; RESP 16; TEMP 36.9; O2SAT 97
--- NOTE | 2024-09-25 04:46 | ED_ITS ---
HPI - General Adult General Chief complaint: General Medical Stated complaint: ?Bilateral Leg infection Time Seen by Provider: 09/25/24 04:46 Source: patient and family () Mode of arrival: ambulatory Limitations: no limitations History of Present Illness ED Provider: Dr. Rene Veronica HPI narrative: 69-year-old female with a history of anxiety/psychosis who presents emergency department for evaluation of nonhealing on her hands, wrists, ears and legs. Patient states that she has noted worms crawling out of her skin. Patient states she was seen multiple doctors and has been treated with antibiotic ointments and steroid ointments without any relief for symptoms. Patient was concerned that she now has changes in the skin around her ears, hands wrists and feet that are not healing therefore she came to the emergency department for evaluation. Related Data Previous Rx's ?Medication ?Instructions ?Recorded clonazepam 0.5 mg tablet 0.5 mg PO DAILY PRN Anxiety 30 01/25/22 days #30 tabs clonazepam 1 mg tablet 1 mg PO BEDTIME 30 days #30 tabs 01/25/22 melatonin 3 mg tablet 3 mg PO DAILY@1900 30 days #30 tabs 01/25/22 polyethylene glycol 3350 17 gram 17 g PO DAILY 30 days #30 ea 01/25/22 oral powder packet risperidone 1 mg tablet 1.5 mg (1.5 x 1 mg) PO DAILY 01/25/22 days #45 tabs trazodone 50 mg tablet 50 mg PO BEDTIME PRN Insomnia 30 01/25/22 days #30 tabs prednisone 10 mg tablet 10 mg PO DIRECTED #60 tabs 09/25/24 triamcinolone acetonide 0.5 % 1 appl topical BID Apply to ears 09/25/24 topical ointment and hands #30 grams Allergies Allergy/AdvReac Type Severity Reaction Status Date / Time diphenhydramine Allergy Unknown Unknown Verified 09/24/24 17:13 [From Benadryl] Review of Systems 2 Review of Systems: Yes all other systems are reviewed and are negative PMFSH Past Medical History Medical History (Updated 09/25/24 @ 05:40 by Rene Veronica MD) Anxiety Psychosis Social History Social History (Updated 01/12/22 @ 14:06 by Rayna Velazquez DO) Household Members: Spouse Housing: House Do you presently have visiting nurse or other home services: No Patient Tobacco Use Status: Never used Tobacco Smoked in Last 30 Days: No Use of substances other than those prescribed or required for medical reasons: No Advance Directives: No Advance Directives Information Provided: Yes Do you have a plan to hurt others: No Plan service: No Sexual orientation: Straight/Heterosexual Physical Exam ED Vital Signs: Vital Signs - 24 hr 09/24/24 17:06 09/24/24 22:22 09/25/24 00:05 Temperature 98.0 F 98.0 F 98.9 F Pulse Rate 118 H 149 H 103 H Respiratory Rate 24 H 20 20 Blood Pressure 138/96 H 138/82 136/74 Pulse Oximetry 98 97 98 Oxygen Delivery Method Room Air Room Air CPAP 09/25/24 04:00 Temperature 98.4 F Pulse Rate 98 Respiratory Rate 16 Blood Pressure 103/58 L Pulse Oximetry 97 Oxygen Delivery Method Room Air BMI result Body Mass Index 24.4 Vital signs revealed elevated blood pressure otherwise unremarkable Skin: The patient has dry, cracked, scaly skin in his symmetrical pattern involving her ears, hands, wrists lower extremities and feet. The lower extremities do have bilaterally symmetric erythema with no increased warmth. Psych: Patient does have pressured speech but she does not appear to be demonstrating any evidence for psychosis and does answer questions appropriately. Medical Decision Making Medical Decision Making MDM Narrative: 69-year-old female with a history of anxiety and psychosis who presents emergency department for evaluation of symmetric skin changes on her ears, hands, wrists, legs and feet. Differential diagnosis: ?Includes but is not limited to nonspecific dermatitis, eczema, psoriasis, seborrheic dermatitis, cellulitis Course: My interpretation patient's laboratory evaluation is as follows: WBC was normal 10,000. Anemia with an H&H of 10 and 31.6. Elevated platelet count of [id number]. Elevated BUN of 22. Elevated glucose 131. Troponin was elevated at 29.9. BNP was elevated at 156. The patient was not having any chest pain or evidence for CHF. 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 The patient will be started on prednisone 60 mg once a day for 5 days tapered by 10 mg every 2 days. She was also given prescription for triamcinolone ointment to apply to her ears and hands. Patient was advised to follow up with her PCP to get referred to a lead java software engineer for further treatment. Admission/Observation Consideration of admission/observation: Escalation of care including admission/observation considered (Yes) Lab Data MDM Lab Attestation statement: I reviewed the patient's lab results. 09/24/24 17:48 09/24/24 17:48 Labs: Lab Results 09/24/24 Range/Units 17:48 WBC 10.0 (4.8-10.8) X10*3/uL RBC 3.45 L D (4.20-5.50) X10*6/uL Hgb 10.0 L D (12.0-16.0) g/dl Hct 31.6 L D (37.0-47.0) % MCV 91.6 (80.0-98.0) fL MCH 29.0 (27.0-33.0) pg MCHC 31.6 (31.0-35.0) g/dl RDW 13.2 (11.0-16.0) % Plt Count 424 H D (160-400) X10*3/uL MPV 8.8 L (9.4-12.3) fL Immature Gran % (Auto) 0.7 H (0.0-0.4) % Neut % (Auto) 81.3 H (45-73) % Lymph % (Auto) 9.4 L (20-40) % [place] % (Auto) 6.8 (2-11) % Eos % (Auto) 1.6 (0-4) % Baso % (Auto) 0.2 (0-2) % Lymph # (Auto) 0.9 L (1.2-4.9) X10*3/uL [place] # (Auto) 0.7 (0.1-1.2) X10*3/uL Eos # (Auto) 0.2 (0.0-0.4) X10*3/uL Baso # (Auto) 0.0 (0.0-0.2) X10*3/uL Abs Immat Gran (auto) 0.07 H (0.00-0.03) X10*3/uL Absolute Neuts (auto) 8.1 (2.0-8.3) x10*3/uL Absolute Nucleated RBC 0.000 (0.0-0.012) X10*3/uL Nucleated RBC % (auto) 0.0 (0.0-0.2) /100WBC Sodium 139 (135-145) mmol/L Potassium 4.0 (3.3-5.1) mmol/L Chloride 105 (96-108) mmol/L Carbon Dioxide 24 (22-29) mmol/L Anion Gap 14 (12-20) BUN 22 H (9-16) mg/dL Creatinine 0.71 (0.5-1.4) mg/dL Estim Creat Clear Calc 74.7 Estimated GFR > 60 Random Glucose 131 H (60-115) mg/dL Calcium 8.6 D (8.4-10.2) mg/dL Troponin I High Sens 29.9 H (<3.5-17.0) ng/L B-Natriuretic Peptide 156 H (<100) pg/mL Prescription Management I considered prescription management with: Other (Prednisone, triamcinolone ointment) Discharge Plan Discharge Clinical Impression: Dermatitis Patient Disposition: Home, Self-Care Instructions: Dermatitis (ED) Additional Instructions: 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 There are several different autoimmune dermatitis including eczema, psoriasis in seborrheic dermatitis. These conditions are caused by your immune system attacking your skin and are not caused by an infection.Your primary care doctor needs to refer you to a lead java software engineer in order to get diagnosis and further treatment of your skin condition. Take prednisone 10 mg pills, 6 pills (60 mg) once a day for 5 days then decrease by 1 pill every 2 days until you complete the prescription Apply the triamcinolone cream 2 times a day to your ears and hands Follow-up with your doctor in 2 days. Please return to the emergency department if your symptoms get worse or if you develop any symptoms that are concerning to you. Prescriptions: New prednisone 10 mg tablet 10 mg PO DIRECTED Qty: 60 0RF Rx Instructions: Day 1 through 5 take 6 pills then decrease by 1 pill every 2 days until you complete prescription triamcinolone acetonide 0.5 % ointment 1 appl topical BID Qty: 30 0RF No Action polyethylene glycol 3350 17 gram Powder In Packet 17 g PO DAILY 30 Days Qty: 30 0RF clonazepam 0.5 mg Tablet 0.5 mg PO DAILY PRN (Reason: Anxiety) 30 Days Qty: 30 0RF clonazepam 1 mg Tablet 1 mg PO BEDTIME 30 Days Qty: 30 0RF risperidone 1 mg Tablet 1.5 mg PO DAILY 30 Days Qty: 45 0RF melatonin 3 mg Tablet 3 mg PO DAILY@1900 30 Days Qty: 30 0RF trazodone 50 mg Tablet 50 mg PO BEDTIME PRN (Reason: Insomnia) 30 Days Qty: 30 0RF Print Language: Burundian
[2024-09-25 06:25] VITALS: BP 103/58; PULSE 98; RESP 16; TEMP 36.9; O2SAT 97
== END 2024-09-25 06:30 | disposition home or self-care (01) ==
PROVIDERS: Emergency Provider Emergency Medicine Emergency Medical Services; PCP Family Medicine
DX: L30.9 Dermatitis, unspecified (principal)
CPT/HCPCS: 36415; 80048; 83880; 84484; 85025; 99283; 99284